=== PATIENT | male | born 1945 | race Caucasian/White ===

== ENCOUNTER → 2018-01-11 | Emergency (ER) | payer MEDICARE, MEDICAID ==
[~2018-01-11] VITALS: Ht 177.8 cm; Wt 98.0 kg
[~2018-01-11] MED LIST: ONDA4TAB12 PO; POTA20TA19 PO; Potassium Cl inj 20 MEQ, magnesium sulf injection 2 GM, folic acid inj. 1 MG, thiamine ... IV ONE; normal saline 1000ML IV soln IVB ONE; ondansetron/PF 4mg/2ml inj IV ONE; potassium Cl 20 mEq SR tablet PO STA
[2018-01-11 13:28] LABS: BASOPHILS % (AUTO) 0.3 % (0-1); EOSINOPHILS # (AUTO) 0.1 X10'3 (0-0.9); EOSINOPHILS % (AUTO) 0.8 % (0-6); HEMATOCRIT 48.5 % (42.0-52.0); HEMOGLOBIN 16.8 g/dl (14.0-17.9); LYMPHOCYTES # (AUTO) 1.1 X10'3 (1.1-4.8); LYMPHOCYTES % (AUTO) 11.3 % (21-51); MEAN CORPUSCULAR HEMOGLOBIN 33.4 PG (27.0-31.0); MEAN CORPUSCULAR HGB CONC 34.7 % (33.0-36.5); MEAN CORPUSCULAR VOLUME 96.3 FL (78-98); MONOCYTES # (AUTO) 0.7 X10'3 (0-0.9); MONOCYTES % (AUTO) 7.9 % (2-12); NEUTROPHILS # (AUTO) 7.6 X10'3 (1.8-7.7); NEUTROPHILS % (AUTO) 79.7 % (42-75); PLATELET COUNT 221 X10'3 (140-440); RED BLOOD COUNT 5.03 X10'6 (4.70-6.10); RED CELL DISTRIBUTION WIDTH 18.6 % (11.5-14.5); WHITE BLOOD COUNT 9.5 X10'3 (4.5-11.0)
[2018-01-11 13:42] LABS: ALANINE AMINOTRANSFERASE 39 U/L (12-78); ALBUMIN 3.1 G/DL (3.4-5.0); ALBUMIN/GLOBULIN RATIO 0.8 (1.1-1.5); ALKALINE PHOSPHATASE 85 IU/L (46-116); ANION GAP 10 (8-16); ASPARTATE AMINO TRANSFERASE 50 U/L (10-37); BILIRUBIN,TOTAL 2.7 MG/DL (0.1-1.0); BLOOD UREA NITROGEN 20 MG/DL (7-18); CALCIUM 8.3 MG/DL (8.5-10.1); CHLORIDE 100 MMOL/L (99-107); CREATININE 0.87 MG/DL (0.60-1.10); GLUCOSE 127 MG/DL (70-104); LIPASE 113 U/L (73-393); SODIUM 141 MMOL/L (135-145); TOTAL CARBON DIOXIDE 30.9 MMOL/L (24-32); TOTAL PROTEIN 7.1 G/DL (6.4-8.2); eGFR 86 ML/MIN
[2018-01-11 13:45] LABS: POTASSIUM 2.4 MMOL/L (3.5-5.1)
[2018-01-11 13:46] LABS: CLARITY,URINE CLEAR (Clear); PH,URINE 6.5 (4.8-8.0)
[2018-01-11 14:05] LABS: COLOR,URINE DARK YELLOW (Yellow); UA COLLECTION TYPE CLN CATCH MIDSTREAM
[2018-01-11 14:07] LABS: BACTERIA,URINE FEW /HPF (Neg); MUCUS STRANDS FEW /LPF (Neg); RBC,URINE 0-2 /HPF (0-2); SQUAMOUS EPITHELIAL CELL,UR FEW /LPF (FEW); WBC,URINE 0-4 /HPF (0-4)
[2018-01-11 14:25] LABS: CREATINE KINASE 69 U/L (39-308); MAGNESIUM 1.4 MG/DL (1.5-2.4); PHOSPHORUS 3.2 MG/DL (2.3-4.5)
[2018-01-11] MEDS: potassium 10mEq/100ml NS w/LIDOcaine (10mg/bag) IV SCH ×2 (14:44→14:50)
[2018-01-11 16:37] VITALS: BP 156/78
== END | disposition home or self-care (01) ==
LOC: ER 12:21
DX: E86.0 Dehydration (principal); E87.6 Hypokalemia; I10 Essential (primary) hypertension; Z79.899 Other long term (current) drug therapy
CPT/HCPCS: 36415; 80053; 81001; 82550; 83690; 83735; 84100; 85025; 96365; 96366; 96375; 99285; J2405; J3411; J3475; J3480; J3490; J7030

== ENCOUNTER 2018-08-19 18:18 | Emergency (ER) | payer MEDICARE, MEDICAID ==
[~2018-08-19] VITALS: Ht 177.8 cm; Wt 90.0 kg
[~2018-08-19 18:18] MED LIST changes: -POTA20TA19 PO; -Potassium Cl inj 20 MEQ, magnesium sulf injection 2 GM, folic acid inj. 1 MG, thiamine ... IV ONE; -normal saline 1000ML IV soln IVB ONE; -ondansetron/PF 4mg/2ml inj IV ONE; -potassium Cl 20 mEq SR tablet PO STA
[2018-08-19 18:41] VITALS: BP 196/108
== END 2018-08-19 20:15 | disposition home or self-care (01) ==
LOC: ER 18:19
DX: S61.012A Laceration without foreign body of left thumb without damage to nail, initial encounter (principal); S61.412A Laceration without foreign body of left hand, initial encounter; I10 Essential (primary) hypertension; Z79.899 Other long term (current) drug therapy; W26.8XXA Contact with other sharp object(s), not elsewhere classified, initial encounter; Y93.89 Activity, other specified; Y92.89 Other specified places as the place of occurrence of the external cause; Y99.8 Other external cause status
CPT/HCPCS: 12002; 99284

== ENCOUNTER 2019-08-14 02:22 | Outpatient (CLI) | payer MEDICARE, OTHER ==
[~2019-08-14 02:22] MED LIST changes: +LISI40TA4 PO; +METO-384 PO; -ONDA4TAB12 PO; +POTA20TA19 PO; +SPIR50TA5 PO; +TRAZ-256 PO
[2019-08-14 10:11] LABS: C DIFF ANTIGEN POSITIVE (NEGATIVE); C DIFF SPECIMEN=DIARRHEA? ACCEPTABLE
[2019-08-14 11:05] LABS: C DIFFICILE TOXINS A&B POSITIVE (Neg)
== END 2019-08-14 23:59 | disposition home or self-care (01) ==
LOC: LAB SPEC 02:22
PROVIDERS: ATTEND Internal Medicine
DX: A41.9 Sepsis, unspecified organism (principal)
CPT/HCPCS: 87324; 87449

== ENCOUNTER 2019-10-15 16:30 | Emergency (ER) | payer MEDICARE, OTHER ==
[~2019-10-15] VITALS: Ht 177.8 cm; Wt 90.0 kg
[2019-10-15 17:51] VITALS: BP 180/92
== END 2019-10-15 18:27 | disposition home or self-care (01) ==
LOC: ER 16:30
DX: B34.9 Viral infection, unspecified (principal); R52 Pain, unspecified; R50.9 Fever, unspecified; I10 Essential (primary) hypertension; Z98.890 Other specified postprocedural states; Z79.899 Other long term (current) drug therapy
CPT/HCPCS: 99281

== ENCOUNTER 2020-06-03 13:38 | Emergency (ER) | payer MEDICARE ==
[~2020-06-03] VITALS: Ht 177.8 cm; Wt 106.0 kg
[~2020-06-03 13:38] MED LIST changes: +ASPI-1071 PO; -POTA20TA19 PO; -TRAZ-256 PO
[2020-06-03 14:18] LABS: BASOPHILS % (AUTO) 0.3 % (0-1); EOSINOPHILS # (AUTO) 0.1 X10'3 (0-0.9); EOSINOPHILS % (AUTO) 1.2 % (0-6); HEMATOCRIT 39.5 % (42.0-52.0); HEMOGLOBIN 13.9 g/dl (14.0-17.9); LYMPHOCYTES # (AUTO) 1.6 X10'3 (1.1-4.8); LYMPHOCYTES % (AUTO) 15.9 % (21-51); MEAN CORPUSCULAR HEMOGLOBIN 33.9 PG (27.0-31.0); MEAN CORPUSCULAR HGB CONC 35.3 g/dL (33.0-36.5); MEAN PLATELET VOLUME 8.9 FL (7.4-10.4); MONOCYTES # (AUTO) 1.9 X10'3 (0-0.9); MONOCYTES % (AUTO) 18.5 % (2-12); NEUTROPHILS # (AUTO) 6.4 X10'3 (1.8-7.7); NEUTROPHILS % (AUTO) 64.1 % (42-75); PLATELET COUNT 212 X10'3 (140-440); RED BLOOD COUNT 4.11 X10'6 (4.70-6.10); RED CELL DISTRIBUTION WIDTH 16.8 % (11.5-14.5)
[2020-06-03] MEDS ORDERED: dicyclomine 10 MG capsule PO ONE (14:25)
[2020-06-03] MEDS ORDERED: acetaminophen 325mg tablet PO ONE (14:25)
[2020-06-03] MEDS ORDERED: aspirin 325mg tablet PO ONE (14:25)
[2020-06-03 14:40] LABS: ALANINE AMINOTRANSFERASE 48 U/L (12-78); ALBUMIN 3.2 G/DL (3.4-5.0); ALBUMIN/GLOBULIN RATIO 0.8 (1.1-1.5); ALKALINE PHOSPHATASE 76 IU/L (46-116); ANION GAP 10 (8-16); ASPARTATE AMINO TRANSFERASE 60 U/L (10-37); BLOOD UREA NITROGEN 19 MG/DL (7-18); BUN/CREATININE RATIO 16.7 (5.4-32.0); CALCIUM 8.7 MG/DL (8.5-10.1); CHLORIDE 98 MMOL/L (99-107); CREATININE 1.14 MG/DL (0.60-1.10); GLUCOSE 128 MG/DL (70-104); LIPASE 209 U/L (73-393); SODIUM 139 MMOL/L (135-145); TOTAL CARBON DIOXIDE 30.7 MMOL/L (24-32); eGFR 63 ML/MIN
[2020-06-03 14:43] LABS: POTASSIUM 2.4 MMOL/L (3.5-5.1)
[2020-06-03] MEDS ORDERED: potassium Cl 10 mEq/100mL bag IV ONE (14:45)
[2020-06-03] MEDS ORDERED: potassium Cl 20 mEq SR tablet PO ONE (14:45)
[2020-06-03] MEDS ORDERED: magnesium 2GM in 50ml NS 50 ML IV ONE (14:45)
[2020-06-03] MEDS ORDERED: POTA20TA19 PO (15:10)
[2020-06-03] MEDS ORDERED: POLY17PO10 PO (15:17)
[2020-06-03] MEDS ORDERED: bisacodyl 5mg tablet.DR PO ONE (15:20)
[2020-06-03 16:34] LABS: CLARITY,URINE CLEAR (Clear); COLOR,URINE YELLOW (Yellow); GLUCOSE, URINE NEGATIVE (Neg); KETONES,URINE NEGATIVE (Neg); LEUKOCYTE ESTERASE ,URINE TRACE (Neg); NITRITES, URINE NEGATIVE (Neg); OCCULT BLOOD,URINE LARGE (Neg); PH,URINE 6.5 (4.8-8.0); PROTEIN,URINE 100 mg/dl (Neg); UA COLLECTION TYPE CLN CATCH MIDSTREAM
[2020-06-03 16:39] LABS: BACTERIA,URINE FEW /HPF (Neg); MUCUS STRANDS FEW /LPF (Neg); RBC,URINE 50-100 /HPF (0-2); SQUAMOUS EPITHELIAL CELL,UR FEW /LPF (FEW)
[2020-06-03 17:26] VITALS: BP 134/82
== END 2020-06-03 17:18 | disposition home or self-care (01) ==
LOC: ER 13:38
DX: E87.6 Hypokalemia (principal); R10.9 Unspecified abdominal pain; K59.00 Constipation, unspecified; I10 Essential (primary) hypertension; Z72.89 Other problems related to lifestyle; Z88.0 Allergy status to penicillin; Z79.82 Long term (current) use of aspirin; Z79.899 Other long term (current) drug therapy
CPT/HCPCS: 71045; 74176; 80053; 81001; 83690; 83880; 84484; 85025; 87088; 93005; 96365; 96368; 99285; J3475; J3480